=== PATIENT | male | born 1955 | race Caucasian/White ===

== ENCOUNTER 2016-12-31 11:22 | Observation (INO) | payer MEDICAID, OTHER ==
[~2016-12-31] VITALS: Ht 188 cm; Wt 95.3 kg
[2016-12-31 12:31] LABS: Basophils # (auto) 0.1 uL; Basophils % (auto) 1.3 % (0.0-2.0); Eosinophils # (auto) 0.3 uL; Eosinophils % (auto) 4.9 % (0.0-7.0); Hematocrit 43.6 % (41.0-53.0); Hemoglobin 15.1 g/dL (13.5-17.5); Lymphocytes # (auto) 1.9 uL; Lymphocytes % (auto) 27.4 % (10.0-50.0); Mean Corpuscular Hemoglobin 29.9 pg (28.0-32.0); Mean Corpuscular Hgb Conc. 34.5 g/dL (32.0-36.0); Mean Corpuscular Volume 86.5 fL (80.0-100.0); Mean Platelet Volume 7.5 fL (7.4-10.4); Monocytes # (auto) 0.3 uL; Monocytes % (auto) 3.7 % (0.0-12.0); Neutrophils # (auto) 4.4 uL; Neutrophils % (auto) 62.7 % (37.0-80.0); Platelet Count (auto) 318 10^3/uL (140-450); Red Cell Distribution Width 13.1 % (11.6-16.0); White Blood Cell 7.1 10^3/uL (4.4-10.8)
[2016-12-31 12:47] LABS: Lactic Acid w/Reflex 2.3 mmol/L (0.4-2.0)
[2016-12-31 12:54] LABS: Albumin 3.9 g/dL (3.4-5.0); Alkaline Phosphatase 126 U/L (45-117); Anion Gap 6 (5-15); Aspartate Aminotransferase 19 U/L (15-37); BUN/Creatinine Ratio 8.9; Bilirubin, Total 0.6 mg/dL (0.2-1.0); Blood Urea Nitrogen 7 mg/dL (7-18); Calcium 8.8 mg/dL (8.5-10.1); Carbon Dioxide 31 mmol/L (21-32); Chloride 102 mmol/L (98-107); GFR African American 129 mL/min; GFR Non-African American 107 mL/min; Glucose 99 mg/dL (74-106); Magnesium 2.6 mg/dL (1.6-2.6); Potassium 4.1 mmol/L (3.5-5.1); Sodium 139 mmol/L (136-145); Total Protein 8.4 g/dL (6.4-8.2)
[2016-12-31 13:14] LABS: REFLEX LACTIC ACID YES OR NO YES
[2016-12-31] MEDS ORDERED: SODIUM CHLORIDE 0.9% 500 ML IVB ONE (14:55)
[2016-12-31] MEDS ORDERED: NALBUPHINE HCL 10 MG/1ml INJECTION IV ONE (15:00)
[2016-12-31] MEDS ORDERED: PROMETHAZINE HCL 25 MG/ML 1ML IV ONE (15:00)
[2016-12-31 17:30] VITALS: BP 143/92
== END 2016-12-31 18:03 | disposition home or self-care (01) | DRG 861 ==
LOC: EDBD 11:27 → ER 11:27 → OVERFLOW 14:58 → ER 18:03
PROVIDERS: ADMIT Emergency Medicine; ATTEND Emergency Medicine
DX: R53.83 Other fatigue (principal); I10 Essential (primary) hypertension; R47.81 Slurred speech; T88.7XXA Unspecified adverse effect of drug or medicament, initial encounter; Z85.46 Personal history of malignant neoplasm of prostate
CPT/HCPCS: 36415; 70450; 71010; 80053; 80320; 83605; 83735; 84443; 84484; 85025; 87040; 93005; 96361; 96374; 96375; 99285; G0378; J2300; J2550; J7030

== ENCOUNTER 2022-01-13 14:18 | Emergency (ER) | payer OTHER, MEDICAID ==
[~2022-01-13] VITALS: Ht 188 cm; Wt 108.9 kg
[2022-01-13 17:53] LABS: Basophils # (auto) 0.1 10 ^3/uL (0-0.2); Basophils % (auto) 1.2 % (0.0-2.0); Eosinophils # (auto) 0.4 10 ^3/uL (0-0.8); Hematocrit 38.9 % (41.0-53.0); Hemoglobin 13.2 g/dL (13.5-17.5); Lymphocytes # (auto) 2.3 10 ^3/uL (0.4-5.4); Lymphocytes % (auto) 19.1 % (10.0-50.0); Mean Corpuscular Hgb Conc. 33.9 g/dL (32.0-36.0); Mean Corpuscular Volume 88.5 fL (80.0-100.0); Monocytes # (auto) 0.5 10 ^3/uL (0-1.3); Monocytes % (auto) 4.4 % (0.0-12.0); Neutrophils # (auto) 8.7 10 ^3/uL (1.6-8.6); Neutrophils % (auto) 72.3 % (37.0-80.0); Red Cell Distribution Width 13.4 % (11.8-14.3)
[2022-01-13 18:07] LABS: Albumin 3.6 g/dL (3.4-5.0); Calcium 8.7 mg/dL (8.5-10.1); Potassium 4.6 mmol/L (3.5-5.1)
[2022-01-13 18:10] LABS: BUN/Creatinine Ratio 11.9; Bilirubin, Total 0.4 mg/dL (0.2-1.0)
[2022-01-13 20:50] VITALS: BP 133/79
== END 2022-01-13 20:58 | disposition home or self-care (01) ==
LOC: ER 14:18
DX: S40.012A Contusion of left shoulder, initial encounter (principal); S80.02XA Contusion of left knee, initial encounter; S00.01XA Abrasion of scalp, initial encounter; I10 Essential (primary) hypertension; D72.829 Elevated white blood cell count, unspecified; Z88.6 Allergy status to analgesic agent; W01.0XXA Fall on same level from slipping, tripping and stumbling without subsequent striking against object, initial encounter; Y93.89 Activity, other specified; Y92.89 Other specified places as the place of occurrence of the external cause; Y99.8 Other external cause status
CPT/HCPCS: 36415; 70450; 72125; 73030; 73562; 80053; 84484; 85025; 93005